=== PATIENT | female | born 1980 | race Caucasian/White ===

== ENCOUNTER 2016-05-12 17:20 | Inpatient (IN) | payer BC ==
[~2016-05-12] VITALS: Ht 154.9 cm; Wt 102.3 kg
--- NOTE | 2016-05-12 17:49 | NSTRPT ---
NST Information Datetime Report Generated by CPN: 05/12/2016 17:48 Datetime: 05/12/2016 15:10 NST Information EGA: 37.2 Test Number: 2 Time on Monitor: 05/12/2016 15:41 Time off Monitor: 05/12/2016 17:00 NST Duration (Min): 79 Reason for NST: Gestational Hypertension Test and Monitor Explained: Monitor Explained; Test Explained; Verbalized Understanding Pulse: 70 Resp: 19 SBP: 121 DBP: 79 Test Evaluation NST Interventions: PO Hydration; Reposition Patient Patient States Movement: Present Contraction Frequency: X1, mild FHR Baseline : 140 Variability: Moderate 6-25bpm Accelerations: 15X15 Decelerations: Variable FHR Category: Category I NST Results: Questionable Comments: NST only strip reviewed by Dr. Milo MD recommends pt go to OB Triage now for extended monito ring. POC discussed with patient. Pt verbalizes understanding. 1700-Pt to OB Triage now, kick counts discussed, follow-up NST appointment given. Pt verbal izes understanding and denies questions at this time. Electronically Signed By E-Signature: with User ID: [id number], Addendum/Amendment: FHT record with uncertain heart rate baseline, and one suspicious decelera tion after a contraction. Recommend prolonged monitoring.
[2016-05-12 17:51] VITALS: BP 130/71; PULSE 75; Ht 154.9 cm; Wt 102.3 kg
[2016-05-12] MEDS ORDERED: PRENAT PO (17:53)
--- NOTE | 2016-05-12 18:11 | RADRPT ---
PROCEDURE: OB ultrasound for biophysical profile CLINICAL INDICATION: induced hypertension. TECHNIQUE: Multiple sonographic images of the pelvis were obtained. Transabdominal view of the gr avid uterus are available for review. The images were reviewed on a PACS workstation. COMPARISON: None FINDINGS: breathing movement = 2/2 tone = 2/2 motion = 2/2 OPHELIA = 2/2 OPHELIA = 9.6 cm Single live intrauterine with cardiac activity. heart rate equals 139 beats p er minute. Presentation is cephalic. The placenta is posterior fundal. IMPRESSION: 1. Single viable intrauterine gestation. 2. Biophysical profile = 8/8. 3. OPHELIA = 9.6 cm. RPTAT: HJBF .Lizandro Townsend MD, MD Date Time Electronically viewed and signed by .Lizandro Townsend MD, MD on 05/12/2016 18:10 .B/
--- NOTE | 2016-05-12 19:53 | HP ---
Date/Time of Note Date/Time of Note DATE: 05/12/16 TIME: 19:43 OB - History Hx of Present Free Text/Dictation 35 yo P2 @ 37 wks 2 days, presents from NST for indeterminate baseline; she has h/o PIH, and BP's are starting to elevate to 143/86, 148/79; patient denies headache, blurry vision, or RUQ pain POB- prior c/d x 2 Chief Complaint: indeterminate baseline in NST, now resolved, elevated BP's, delia Last Menstrual Period: Aug 24, 2015 Estimated Due Date: May 31, 2016 : 3 Para: 2 Care: Good Care Obstetrical Complications: Gestational Hypertension Past Family/Social History * Past Medical, Surgical, Family and Obstetric Histories reviewed from chart. Blood Type: O+ Rubella: immune RPR/VDRL: Negative GBS Status: Negative HBsAG: Negative OB Admission Exam Vital Signs Vital Signs Vital Signs Date Time Temp Pulse Resp B/P Pulse Ox O2 Delivery O2 Flow Rate FiO2 05/12/16 17:51 98.5 75 130/71 Physical Exam HEENT: WNL Abdomen: WNL Cervical Dilatation: 2cm Effacement: 0% Station: -3 Membranes: Intact Heart Rate: 150's Accelerations: Accelerations Present Decelerations: No Decelerations Varibility: Moderate Contractions on Admission: < 5 Minutes Apart Intensity: Moderate OB Assessment/Plan Other Assessment: 35 yo P2 @ 37wks 2 days, prior c/d x 2 , in early labor, with elevated BP's - patient has been NPO since 12pm - Other plan: will proceed to repeat c/d Dr Marmolejo aware and agrees w plan charge nurse aware will notify anesthesia TAI QUIÑONEZ MD May 12, 2016 19:53
[2016-05-12 20:18] LABS: ADD SCAN DIFF NO
[2016-05-12 20:21] LABS: BASOPHILS % 0.3 % (0.0-2.0); EOSINOPHILS # 0.1 10^3/ul (0.0-0.5); EOSINOPHILS % 0.7 % (0.0-7.0); HEMATOCRIT 39.1 % (37.0-47.0); HEMOGLOBIN 13.1 g/dl (12.0-16.0); LYMPHOCYTES # 1.7 10^3/ul (0.8-2.9); LYMPHOCYTES % 17.7 % (15.0-51.0); MEAN CORPUSCULAR HEMOGLOBIN 31.5 pg (29.0-33.0); MEAN CORPUSCULAR HGB CONC 33.5 g/dl (32.0-37.0); MEAN PLATELET VOLUME 10.5 fl (7.4-10.4); MONOCYTE # 0.6 10^3/ul (0.3-0.9); MONOCYTES % 5.9 % (0.0-11.0); NEUTROPHIL # 7.1 10^3/ul (1.6-7.5); PLATELET COUNT 190 10^3/UL (140-415); RED BLOOD COUNT 4.16 10^6/ul (4.20-5.40); RED CELL DISTRIBUTION WIDTH 13.4 % (11.5-14.5); WHITE BLOOD COUNT 9.5 10^3/ul (4.8-10.8)
[2016-05-12] MEDS ORDERED: OXYTOCIN 30 UNITS/LR 500 ML IV PRN (20:30)
[2016-05-12] MEDS ORDERED: LACTATED RINGER'S 1,000 ML IV ONE (20:30)
[2016-05-12] MEDS ORDERED: MISOPROSTOL 200 MCG TAB PR PRN (20:30)
[2016-05-12] MEDS ORDERED: CEFAZOLIN 2 GM/50 ML (PMX) 50 ML IV SCH (20:30)
[2016-05-12] MEDS ORDERED: OXYTOCIN 30 UNITS/LR 500 ML IV SCH (20:30)
[2016-05-12] MEDS ORDERED: CARBOPROST 250 MCG INJ IM PRN (20:30)
[2016-05-12] MEDS ORDERED: METHYLERGONOVINE 0.2 MG INJ IM PRN (20:30)
[2016-05-12 20:31] LABS: INR 0.91; PROTIME 12.3 Sec (12.2-14.2)
[2016-05-12 20:32] LABS: PARTIAL THROMBOPLASTIN TIME 28.2 Sec (25.0-35.0)
[2016-05-12] MEDS ORDERED: morphine SULFATE/PF (10 MG/10 ML) INJ ONE (21:13)
[2016-05-12] MEDS ORDERED: FENTAnyl 50 MCG/ML VIAL ONE (21:14)
[2016-05-12] MEDS ORDERED: OXYTOCIN 10 UNIT INJ ONE (21:14)
[2016-05-12] MEDS ORDERED: PHENYLephrine (100 MCG/ML) 5ML SYG ONE (21:14)
[2016-05-12] MEDS ORDERED: METOCLOPRAMIDE 10 MG INJ ONE (21:14)
[2016-05-12] MEDS: LACTATED RINGER'S 1,000 ML IV SCH (21:15)
--- NOTE | 2016-05-12 21:27 | HP ---
Date/Time of Note Date/Time of Note DATE: 05/12/16 TIME: 21:24 OB - History Hx of Present Free Text/Dictation add patient desire to have tubal sterilization which was reconfirmed , consent was signed on proper time Past Family/Social History * Past Medical, Surgical, Family and Obstetric Histories reviewed from chart. OB Admission Exam Vital Signs Vital Signs Vital Signs Date Time Temp Pulse Resp B/P Pulse Ox O2 Delivery O2 Flow Rate FiO2 05/12/16 17:51 98.5 75 130/71 Last 72 hours Lab Results CBC & BMP 05/12/16 20:10 TIERRA VALERA MD May 12, 2016 21:26
[2016-05-12] MEDS ORDERED: MEPERIDINE 25 MG INJ IV PRN (22:00)
[2016-05-12] MEDS ORDERED: TRIMETHOBENZAMIDE 100 MG/ML VIAL IM PRN (22:00)
[2016-05-12] MEDS ORDERED: MIDAZOLAM 1 MG/ML 2 ML INJ IV PRN (22:00)
[2016-05-12] MEDS ORDERED: ONDANSETRON 4 MG INJ IV PRN ×2 (22:00)
[2016-05-12] MEDS ORDERED: EPHEDrine SULFATE 50 MG/5 ML SYG IV PRN (22:00)
[2016-05-12] MEDS ORDERED: HYDROmorphONE (0.2 MG/ML) 10ML SYG IV PRN ×3 (22:00)
[2016-05-12] MEDS ORDERED: hydrALAzine 20 MG INJ IV PRN (22:00)
[2016-05-12] MEDS ORDERED: ZOLPIDEM 5 MG TAB PO PRN (22:00)
[2016-05-12] MEDS ORDERED: FENTAnyl 50 MCG/ML VIAL IV PRN ×3 (22:00)
[2016-05-12] MEDS ORDERED: NALOXONE (0.4 MG/ML) INJ IV PRN (22:00)
[2016-05-12] MEDS ORDERED: DIPHENHYDRAMINE 50 MG INJ IV PRN ×2 (22:00)
[2016-05-12] MEDS ORDERED: LABETALOL HCL 20MG INJ IV PRN (22:00)
[2016-05-12] MEDS ORDERED: HYDROmorphONE 1 MG/ML SYG IV PRN ×2 (22:00)
--- NOTE | 2016-05-12 23:49 | DELSUM ---
Delivery Summary A-C Datetime Report Generated by CPN: 05/12/2016 23:48 DELIVERY PERSONNEL Roof Bolter Helper: Long, Renu MATERNAL INFORMATION Delivery Anesthesia: Spinal Medications in Delivery: SEE ANESTHESIA Estimated Blood Loss (ml): 635 Placenta Cultured: No Maternal Complications: Other Other Maternal Complications: GESTATIONAL HTN LABOR SUMMARY EDC: 05/31/2016 00:00 No. Babies in Womb: 1 Attempted: No Labor Anesthesia: Intrathecal LABOR INFORMATION Reason for Induction: Not Applicable Onset of Labor: 05/12/2016 10:00 Oxytocin: N/A Group B Beta Strep: Negative Antibiotics # of Doses: 1 Antibiotics Time of Last Dose: 05/12/2016 21:54 Steroids Given: None Reason Steroids Not Administered: Not Applicable MEMBRANES Membranes Rupture Method: Artificial Rupture of Membranes: 05/12/2016 21:55 Length of Rupture (hr): 0.02 Amniotic Fluid Color: Bloody Amniotic Fluid Amount: Moderate Amniotic Fluid Odor: None STAGES OF LABOR Stage 3 hr: 0 Stage 3 min: 1 Total Time in Labor hr: 11 Total Time in Labor min: 57 CSECTION DELIVERY Primary Indication: Repeat Elective Secondary Indication: Repeat Elective CSection Urgency: Non Elective CSection Incidence: Repeat Labor: No Labor Elective: Nonelective CSection Incision: Lower Uterine Transverse BABY A INFORMATION Infant Delivery Date/Time: 05/12/2016 21:56 Method of Delivery: Born in Route : No : N/A Forceps: N/A Vacuum Extraction: N/A Shoulder Dystocia : N/A SHOULDER DYSTOCIA BABY A Infant Delivery Date/Time: 05/12/2016 21:56 PRESENTATION/POSITION BABY A Presentation: Cephalic Cephalic Presentation: Vertex Vertex Position: Left Occipital Anterior Breech Presentation: N/A PLACENTA INFORMATION BABY A Placenta Delivery Time : 05/12/2016 21:57 Placenta Method of Delivery: Manual Removal Placenta Status: Delivered SCORES BABY A Heart Rate 1 min: >100 bpm Resp Effort 1 min: Good Cry Reflex Irritability 1 min: Cough/Sneeze/Pulls Away Muscle Tone 1 min: Active Motion Color 1 min: Body [place], Extremit Blue Resuscitation Effort 1 min: Tactile Stimulation SCORE 1 MIN: 9 Heart Rate 5 min: >100 bpm Resp Effort 5 min: Good Cry Reflex Irritability 5 min: Cough/Sneeze/Pulls Away Muscle Tone 5 min: Active Motion Color 5 min: Body [place], Extremit Blue Resuscitation Effort 5 min: Tactile Stimulation SCORE 5 MIN: 9 INFANT INFORMATION BABY A Gestational Age at Delivery: 37.2 Gestational Status: Early Term- 37- 38.6 Weeks Infant Outcome : Liveborn Condition : Stable Sex: Female IDENTIFICATION/MEDS BABY A ID Band Number: [id number] ID Band Location: Right Leg; Left Arm Sensor Applied: Yes Sensor Number: [id number] Sensor Location : Cord Clamp Vitamin K Given : Not Given Erythromycin Given: Not Given WEIGHT/LENGTH BABY A Infant Birthweight (gm): 2400 Weight (lb): 5 Weight (oz): 5 Length (in): 18.00 Length (cm): 45.72 CORD INFORMATION BABY A No. Cord Vessels: 3 Nuchal Cord : Around Neck x1, Loose Cord Blood Taken: Yes Infant Suction: Mouth; Nose ASSESSMENT BABY A Complications: None Physical Findings at Delivery: Within Normal Limits Respirations: Appears Normal Preschool Substitute Teacher/ALS Called : No Infant Care By: RT JEFFREY, SUSHMA SALDAÑA RN Transferred To: Remains with Mother
--- NOTE | 2016-05-13 00:02 | OPR ---
DATE OF OPERATION: 05/12/2016 PREOPERATIVE DIAGNOSES: 1. at 37 weeks 2 days with 2 previous sections, in early labor. 2. Gestational hypertension. POSTOPERATIVE DIAGNOSES: 1. at 37 weeks 2 days with 2 previous sections, in early labor. 2. Gestational hypertension. 3. Delivered normal female , 5 pounds 5 ounces. ANESTHESIA: Spinal. ANESTHESIOLOGIST: Guillermo Frost MD SURGEON: Latoya Marmolejo MD CERAMIC TILE INSTALLATION HELPER: Catalina Emerson MD ESTIMATED BLOOD LOSS: 700 mL PROCEDURE: Under proper induction of spinal anesthesia, the patient was placed in the frog position . Mari catheter was introduced into the bladder under sterile condition. Repositioned to supine, abdominal wall was prepped and draped in usual aseptic manner. A transverse incision was made along the 2 separate incisional scars, included and removed the old scars, and incision carried down thro ugh subcutaneous tissue to the anterior recti tissue, which was incised transversely in length of th e incision. Fascial flap was created, blunt and sharp dissection of tendinous attachment with some difficulty due to the fibrotic change from the previous surgery and 2 rectus muscles split, and kasandra toneal cavity was entered. Low portion of uterus was exposed. There is no significant adhesion not ed except the bladder flap was pulled over to the uterine serosa, and the low segment was extremely thin. Incision was made above the uterovesical reflection, reached the amniotic membrane, revealed clear amniotic fluid. Normal female infant born from the right occiput transverse position. Mouth and nose were cleaned, and cord was clamped and cut, handed to the respiratory care personnel for fu rther care. Placenta was removed. Uterus was exteriorized. Uterine cavity was completely explored . Uterine incision was closed using 0 chromic catgut in continuous manner in 2 layers. No bleeder was noted. Left fallopian tube was grasped with Lisa forceps, created loop of tube. This loop o f tube was doubly ligated with 0 plain, and loop of tube was excised, the tubal lumen cauterized. S magaly procedure was done on the right fallopian tube, created loop of tube. This loop of tube was matt lidya ligated with 0 plain, and loop of tube was excised. The tubal lumen was cauterized. No bleeder was noted. All the blood clots were removed from the gutter and irrigated, and uterus was relocate d into the abdominal cavity, and both tubes were checked after uterus was relocated into the abdomin al cavity and no bleeding noted. Sponge count taken which was correct. Parietal peritoneum was lucio sed using 0 chromic catgut in continuous manner, muscle closed with 0 chromic catgut in continuous m jeanne. Fascia closed with #1 Vicryl in continuous manner in 2 segments. Subcutaneous tissue irriga cintia. This layer was approximated with 2-0 plain in continuous manner, and the skin was closed with Insorb. There was a little in approximated area which was reinforced with a 3-0 Monocryl in subcuti cular manner. Steri-Strip applied. Pressure dressing applied. Estimated blood loss approximately 700 mL. The patient withstood procedure well, sent to recovery room in stable condition. Dictated By: LATOYA ROWE/AMANDO Conf#: [id number] DID#: [id number]
[2016-05-13] MEDS ORDERED: OXYTOCIN 30 UNITS/LR 500 ML IV PRN (01:30)
[2016-05-13] MEDS ORDERED: METHYLERGONOVINE 0.2 MG INJ IM PRN (01:30)
[2016-05-13] MEDS ORDERED: ONDANSETRON 4 MG INJ IV PRN (01:30)
[2016-05-13] MEDS ORDERED: LANOLIN 7 GM TUBE TOP PRN (01:30)
[2016-05-13] MEDS ORDERED: CARBOPROST 250 MCG INJ IM PRN (01:30)
[2016-05-13] MEDS ORDERED: MISOPROSTOL 200 MCG TAB PR PRN (01:30)
[2016-05-13] MEDS: LACTATED RINGER'S 1,000 ML IV SCH ×3 (03:35→19:43)
[2016-05-13 03:50] VITALS: BP 139/73; PULSE 86; RESP 20
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
[2016-05-13] MEDS: KETOROLAC 30 MG INJ IV PRN ×2 (05:25→17:25)
[2016-05-13 07:08] LABS: ADD SCAN DIFF NO
[2016-05-13 07:14] LABS: BASOPHILS % 0.3 % (0.0-2.0); EOSINOPHILS # 0.1 10^3/ul (0.0-0.5); EOSINOPHILS % 0.6 % (0.0-7.0); HEMOGLOBIN 10.5 g/dl (12.0-16.0); LYMPHOCYTES # 1.5 10^3/ul (0.8-2.9); LYMPHOCYTES % 14.6 % (15.0-51.0); MEAN CORPUSCULAR HEMOGLOBIN 32.1 pg (29.0-33.0); MEAN CORPUSCULAR HGB CONC 33.9 g/dl (32.0-37.0); MEAN CORPUSCULAR VOLUME 94.8 fl (82.0-101.0); MEAN PLATELET VOLUME 10.8 fl (7.4-10.4); MONOCYTE # 0.6 10^3/ul (0.3-0.9); MONOCYTES % 5.3 % (0.0-11.0); NEUTROPHIL # 8.2 10^3/ul (1.6-7.5); NEUTROPHILS % 78.6 % (39.0-77.0); PLATELET COUNT 153 10^3/UL (140-415); RED BLOOD COUNT 3.27 10^6/ul (4.20-5.40); RED CELL DISTRIBUTION WIDTH 13.4 % (11.5-14.5); WHITE BLOOD COUNT 10.5 10^3/ul (4.8-10.8)
--- NOTE | 2016-05-13 08:09 | PN ---
Date/Time of Note Date/Time of Note DATE: 05/13/16 TIME: 08:05 OB Subjective Subjective Subjective Feeling well.In good spirits. OB Objective Objective Objective Afebrile WBC 10. Hgb 10.5 Lochia normal Abdomen, soft,dressing dry. HEENT: WNL Heart: Rhythm Normal Lungs: Clear Abdomen: WNL Extremities: Normal Reflexes: Normal KISHORE TREVINO MD May 13, 2016 08:09
[2016-05-13 08:10] VITALS: BP 114/66; PULSE 76; RESP 19
[2016-05-13] MEDS: SENNA/DOCUSATE NA (8.6MG/50MG) TAB PO SCH ×2 (10:05→21:00)
[2016-05-13 12:09] VITALS: BP 115/69; PULSE 80; RESP 20
[2016-05-13 16:00] VITALS: BP 122/61; PULSE 83; RESP 18
[2016-05-13 19:54] VITALS: BP 112/66; PULSE 83; RESP 19
[2016-05-13] MEDS ORDERED: ZOLPIDEM 5 MG TAB PO PRN (21:34)
[2016-05-13] MEDS ORDERED: OXYCODONE/ACETAMINOPHEN (5/325) TAB PO PRN (21:34)
[2016-05-13] MEDS ORDERED: DIPHENHYDRAMINE 50 MG INJ IV PRN (21:34)
[2016-05-13] MEDS: OXYCODONE/ACETAMINOPHEN (5/325) TAB PO PRN (21:46)
[2016-05-14] MEDS: IBUPROFEN 600 MG TAB PO SCH ×5 (00:02→23:53)
[2016-05-14 04:05] VITALS: BP 124/73; PULSE 77; RESP 20
[2016-05-14] MEDS: LACTATED RINGER'S 1,000 ML IV SCH ×3 (04:05→20:05)
[2016-05-14 08:00] VITALS: BP 98/53; PULSE 70; RESP 18
[2016-05-14] MEDS: SENNA/DOCUSATE NA (8.6MG/50MG) TAB PO SCH ×2 (08:25→20:47)
--- NOTE | 2016-05-14 10:38 | PN ---
Date/Time of Note Date/Time of Note DATE: 05/14/16 TIME: 10:36 OB Subjective Subjective Subjective flatus post OB Objective Objective Objective vss afebrile fundus firm abdomen soft wound ok lochia min calf neg for tenderness OB Assessment/Plan Other Assessment: stable #2c/s Other plan: d/s home in am TIERRA VALERA MD May 14, 2016 10:38
[2016-05-14 16:46] VITALS: BP 115/75; PULSE 68
[2016-05-14 20:00] VITALS: BP 118/76; PULSE 105; RESP 19
[2016-05-15 04:00] VITALS: BP 136/83; PULSE 75; RESP 20
[2016-05-15] MEDS: LACTATED RINGER'S 1,000 ML IV SCH (04:05)
[2016-05-15] MEDS: IBUPROFEN 600 MG TAB PO SCH ×3 (05:23→17:52)
[2016-05-15 08:00] VITALS: BP 125/55; PULSE 82; RESP 18
[2016-05-15] MEDS: SENNA/DOCUSATE NA (8.6MG/50MG) TAB PO SCH (08:32)
[2016-05-15] MEDS: OXYCODONE/ACETAMINOPHEN (5/325) TAB PO PRN (08:33)
[2016-05-15] MEDS ORDERED: DIPHTH/TET/ACEL PERTUSS (ADULT) 0.5 ML VIAL IM* ONE (09:00)
[2016-05-15 16:10] VITALS: BP 119/65; PULSE 78; RESP 18
--- NOTE | 2016-05-15 17:56 | DS ---
Date/Time of Note Date/Time of Note DATE: 05/15/16 TIME: 17:55 Obstetrical Discharge Record Final Diagnosis Final Diagnosis: Term delivered Section Section: Repeat Complications Preg induced Hypertension Augmentation: No Induction: No Condition on Discharge Physical Assessment Last Vitals: normotensive stable vss afebrile Voiding: Yes Bowel Movement: Yes Breast: Soft, non-tender Fundus: Firm Abdomen and Incision: soft wound dry Calf Tenderness: No Patient Condition: Stable TIERRA VALERA MD May 15, 2016 17:56
--- NOTE | 2016-05-15 17:58 | PD.PPDC ---
STRIP WINDER Discharge Instruction Diagnosis Final Diagnosis: s/p repeat section and bilateral tubal sterilization Condition Patient Condition: Stable Diet Diet: Resume Regular Diet Activity/Restrictions Activity: May Shower Restrictions: No Exercising No Lifting Minimize Stair-climbing Nothing in the Vagina No [place] No Tampons, douche Wound/Drain Care Instructions Wound/Drain Care Instructions: Wash with soap and water Keep clean and dry Follow-up Follow-up with Physician: 2, Week/Weeks Return to clinic for INSURANCE CLAIMS CLERK Instructions: Fever greater than 101 Chills Worsening abdominal pain Excessive Vaginal Bleeding More than 2 pads per hour Unable to tolerate diet OB Instructions: Breast Tenderness Depression Blurried Vision Headache Surgical Instructions: Incisional Drainage Incisional Redness TIERRA VALERA MD May 15, 2016 17:58
== END 2016-05-15 19:11 | disposition home or self-care (01) | DRG 765 ==
LOC: OBT 17:20 → L-D 17:22 → OBT 20:20 → L-D 21:36 → PP1 05-13 01:45
PROVIDERS: ADMIT Specialist; ATTEND Specialist
PROC: 10D00Z1 Extraction of Products of Conception, Low, Open Approach (ICD-10-PCS; principal; 2016-05-13)
PROC: 0UL70ZZ Occlusion of Bilateral Fallopian Tubes, Open Approach (ICD-10-PCS; 2016-05-13)
DX: O99.214 Obesity complicating childbirth (principal); Z68.41 Body mass index [BMI] 40.0-44.9, adult; O34.211 Maternal care for low transverse scar from previous cesarean delivery; E66.01 Morbid (severe) obesity due to excess calories; O13.4 Gestational [pregnancy-induced] hypertension without significant proteinuria, complicating childbirth; Z30.2 Encounter for sterilization; Z3A.37 37 weeks gestation of pregnancy; Z37.0 Single live birth
CPT/HCPCS: 76818; 85025; 85610; 85730; 86592; 86850; 86900; 86901; 87340; 88302; 90715; 94760; 99464; G0463; J0690; J1885; J2274; J2370; J2590; J2765; J3010; J7120